=== PATIENT | male | born 1960 | race Caucasian/White ===

== ENCOUNTER → 2020-04-07 09:13 | Outpatient (BNVA) | payer BC, SELFPAY | PROVIDERS: PCP Internal Medicine; Visit Provider Orthopaedic Surgery | DX: Z76.89 Persons encountering health services in other specified circumstances (principal) ==

== ENCOUNTER 2020-04-22 09:02 | Outpatient (REF) | payer BC, SELFPAY ==
--- NOTE | 2020-04-22 09:42 | XR_ITS ---
EXAMINATION: XR KNEES, STANDING AP XR KNEE, RIGHT XR KNEE, LEFT CLINICAL INFORMATION: Bilateral knee pain primary osteoarthritis left knee. COMPARISON: Standing AP knees and left knee 04/25/2017. TECHNIQUE: Standing AP view of both knees is performed. In addition, each knee is imaged in lateral and axial patella views. FINDINGS: The right knee shows no fracture, dislocation, or suprapatellar effusion. Bony mineralization is normal. There is no definite joint narrowing and no erosive change or visible chondrocalcinosis. Again, there is a mineralized loose body posterior medial aspect measuring 0.7 x 1.0 x 1.2 cm. The axial view patella shows some borderline lateralization. No obvious tilting. The left knee shows post surgical changes consistent with prior ACL repair. The hardware is intact. Bony mineralization is normal. There is no fracture, dislocation, or destructive process. There is small suprapatellar effusion. Hoffa's fat pad appears normal. The left knee again shows prominent narrowing medial compartment with osteophytes medial femoral condyle and medial tibial plateau, and mild medial translocation of the femur on the tibial plateau. Axial view patella shows no lateralization. IMPRESSION: 1. Right: Chronic loose body posterior medial capsule 7 x 10 x 12 mm. No definite effusion. 2. Left: Osteoarthritis medial compartment with mild medial translocation/subluxation femur on tibial plateau. Prior ACL repair. Hardware intact. Small suprapatellar effusion.
== END 2020-04-22 09:03 | disposition home or self-care (01) ==
LOC: HO.XRAY 09:02
PROVIDERS: PCP Internal Medicine; Referring Provider Internal Medicine; Visit Provider Orthopaedic Surgery
DX: M17.12 Unilateral primary osteoarthritis, left knee (principal); M25.561 Pain in right knee; M25.562 Pain in left knee
CPT/HCPCS: 73560; 73565